=== PATIENT | female | born 1970 | race Caucasian/White ===

== ENCOUNTER 2016-08-12 16:43 | Emergency (ER) | payer OTHER, BC ==
--- NOTE | ~2016-08-12 | CR156 ---
[facility] A Service of [facility] RADIOLOGY TEXT RESULTS PATIENT: URSZULA DOE LOCATION: [facility] : 68 UNIT #: [id number] AGE: [address]: Marco Quinones MD SEX: F ORDER DR: [id number] [facility] [address], [place] [address] [id number] MR#: [id number] Acc #: [id number] NAME: URSZULA DOE : 1970 SEX: F STUDY DATE/TIME: 08/12/2016 15:43 UNIT: [facility] ROOM: STUDY DESCRIPTION: CR Humerus Min 2 View Lt Attending Physician: Marco Quinones M.D. Ordering Physician: Melvin Marin M.D. Primary Care Physician: No Primary Care Physician MEDICAL IMAGING REPORT This report is preliminary unless electronic signature is present EXAM Left humerus series. DATE OF EXAM 08/12/2016 INDICATIONS Left upper arm pain after a fall today. PROCEDURE 2 views of the left humerus. COMPARISON None. FINDINGS Nondisplaced fracture of the greater tuberosity. No fracture along the shaft of the humerus. No dislocation. IMPRESSION Nondisplaced fracture of the greater tuberosity of the left humerus. Dictated by... Ranjit Tello M.D. THIS IS AN ELECTRONICALLY VERIFIED REPORT Ranjit Tello M.D. at 08/14/2016 6:59 AM ARIEL/jan TD: 08/12/2016 18:10 JOB #: [id number] [facility] A Service of [facility] RADIOLOGY TEXT RESULTS PATIENT: URSZULA DOE LOCATION: [facility] : [birth year] UNIT #: [id number] AGE: [address]: Marco Quinones MD SEX: F ORDER DR: MEDICAL IMAGING REPORT COPY
== END 2016-08-12 17:55 | disposition home or self-care (01) ==
LOC: CED 16:43
DX: S42.255A Nondisplaced fracture of greater tuberosity of left humerus, initial encounter for closed fracture (principal); J45.909 Unspecified asthma, uncomplicated; W19.XXXA Unspecified fall, initial encounter; Y92.69 Other specified industrial and construction area as the place of occurrence of the external cause; Y99.0 Civilian activity done for income or pay
CPT/HCPCS: 73060; 99283